=== PATIENT | female | born 1945 ===

== ENCOUNTER 2022-07-25 13:20 | Outpatient (CLI) | payer MEDICARE, MEDICAID, SELFPAY | END 2022-07-25 13:21 | disposition home or self-care (01) | LOC: ANHAUDIO 13:21 | DX: H90.3 Sensorineural hearing loss, bilateral (principal) | CPT/HCPCS: 92557; 92567 ==

== ENCOUNTER 2023-10-01 08:00 | Outpatient (CLI) | payer MEDICARE, MEDICAID, SELFPAY | END 2023-10-01 08:01 | disposition home or self-care (01) | LOC: ANHAUDIO 08:01 | PROVIDERS: Visit Provider Internal Medicine | DX: H90.3 Sensorineural hearing loss, bilateral (principal) | CPT/HCPCS: 92557; 92567 ==